=== PATIENT | female | born 1940 | race Caucasian/White ===

== ENCOUNTER 2016-10-31 11:29 | Emergency (ER) | payer MEDICARE ==
[~2016-10-31 11:29] MED LIST: ACET325T51 PO; ALBU0.63 INHALATION; ALBU18HF INH; BISA10SU61 RC; BUDE10.2 INHALATION; CALC500T9 PO; CLOP75TA3 PO; DONE23TA PO; FURO-129 PO; GUAI473S22 PO; HALO2ORA TOPICAL; HALO5AMP2 IM; LEVO75TA4 PO; LISI-567 PO; LORA-302 PO; MAGN400O4 PO; METO25TA99 PO; NA P133E23 RC; NITR0.4T6 SL; NYST1POW23 TOP; OXYC-474 PO; POLY17PO6 PO; QUET50TA PO; RANI150C4 PO; RISP0.254 PO; ROSU20TA27 PO; SENN-133 PO; SERT100T PO; TRAM50TA2 PO
[2016-10-31 11:56] VITALS: BP 152/79; PULSE 79; RESP 16; O2SAT 97
--- NOTE | 2016-10-31 12:04 | ED.REPORT ---
HPI-General Illness Date of Service Oct 31, 2016 ED Provider: Dr. Aceves Pt is a 75 y/o female w/ a hx of significant dementia, Alzheimer's, CAD s/p stents x6, HTN, presenting to the ED via EMS c/o right knee pain onset today. According to her home health nurse the patient awoke this morning with right knee swelling and pain. There is no mention of rash, fever, chills, nausea, vomiting. Nursing notes indicate she has an US scheduled 11/01/16 for abdominal pain. History is limited secondary to severe dementia. Nursing Notes Stated Complaint: LEFT KNEE PAIN Chief Complaint: Extremity Trauma Nursing Notes Reviewed: Yes Allergies: Coded Allergies: Penicillins (Verified Allergy, Unknown, 06/25/15) Sulfa (Sulfonamide Antibiotics) (Verified Allergy, Unknown, 06/25/15) amoxicillin (Verified Allergy, Unknown, 06/25/15) atorvastatin (Verified Allergy, Unknown, 06/25/15) ciprofloxacin (Verified Allergy, Unknown, 06/25/15) ciprofloxacin HCl (Verified Allergy, Unknown, 06/25/15) sulfadiazine (Verified Allergy, Unknown, 06/25/15) valacyclovir (Verified Allergy, Unknown, 02/23/15) sulfamethoxazole (Verified Adverse Reaction, Intermediate, abd pain/ cramping, 05/21/15) trimethoprim (Verified Adverse Reaction, Intermediate, abd pain/cramping, 05/21/15) Scheduled Acetaminophen (Acetaminophen) 325 Mg Tablet 650 MG PO TID Budesonide/Formoterol 80-4.5 mcg Inh (Symbicort 80-4.5 mcg Inh) 120 Puff Inhaler 2 PUFF INHALATION BID Clopidogrel Bisulfate (Plavix) 75 Mg Tablet 75 MG PO DAILY Donepezil (Aricept) 23 Mg Tablet 23 MG PO HS Furosemide (Lasix) 20 Mg Tablet 10 MG PO QAM Levothyroxine (Levothyroxine) 75 Mcg Tablet 37.5 MCG PO QAM Lisinopril (Lisinopril) 20 Mg Tablet 30 MG PO DAILY Lorazepam (Ativan) 0.5 Mg Tablet 0.5 MG PO BID Lorazepam (Ativan) 0.5 Mg Tablet 0.5 MG PO Q4H OR give 1mg Q8H prn Metoprolol Succinate ER (Metoprolol Succinate ER) 25 Mg Tab.er.24h 50 MG PO DAILY Nystatin (Nystatin) 1 Each Powder.ea. 1 EACH TOP BID Polyethylene Glycol 3350 (Miralax) 17 Gm Powd.pack 17 GM PO BID Quetiapine Fumarate (Seroquel) 50 Mg Tablet 50 MG PO TID Ranitidine (Ranitidine) 150 Mg Capsule 150 MG PO BID Risperidone (Risperidone) 0.25 Mg Tablet 0.25 MG PO HS Rosuvastatin Calcium (Rosuvastatin Calcium) 20 Mg Tablet 20 MG PO HS Sennosides (Senna) 8.6 Mg Tablet 17.2 MG PO HS Sertraline HCl (Zoloft) 100 Mg Tablet 150 MG PO QAM Tramadol (Tramadol) 50 Mg Tablet 25-50 MG PO TID Scheduled PRN Acetaminophen (Acetaminophen) 325 Mg Tablet 650 MG PO Q4H PRN PRN For Pain Albuterol Neb Soln (Albuterol Neb Soln) 0.63 Mg/3 Ml Vial.neb 0.63 MG INHALATION Q4H PRN PRN For Shortness of Breath Albuterol Sulfate (Ventolin HFA Inhaler) 200 Puff/18 Gm Inhaler 1 PUFF INH Q4 PRN PRN For Wheezing Bisacodyl (Dulcolax Rectal) 10 Mg Supp.rect 10 MG RC DIRECTED PRN PRN For Constipation Calcium Carbonate (Tums) 500 Mg Tab.chew 1,000 MG PO Q4H PRN PRN For Indigestion Guaifenesin/Codeine Phosphate (Guaifenesin AC Cough Syrup) 473 Ml Liquid 10 ML PO Q4H PRN PRN For Cough Haloperidol Lactate (Haloperidol Lactate) 2 Mg/1 Ml Oral.conc 2 MG TOPICAL Q2H PRN PRN For Anxiety or Agitation apply to inner wrist topically Haloperidol Lactate (Haldol) 5 Mg/1 Ml Ampul 2.5 MG IM ONCE PRN PRN severe agitation Magnesium Hydroxide (Milk of Magnesia) 400 Mg/5 Ml Oral.susp 30 ML PO DIRECTED PRN PRN For Constipation Na Phos,M-B/Na Phos,Di-Ba (Fleet Enema) 133 Ml Enema 133 ML RC DIRECTED PRN PRN For Constipation Nitroglycerin SL (Nitroglycerin SL) 0.4 Mg Tab.subl 0.4 MG SL Q5MIN PRN PRN For Chest Pain Oxycodone (Roxicodone) 5 Mg Tablet 2.5-5 MG PO Q4H PRN PRN For Pain General Time Seen by MD: 12:03 Chief Complaint Other (right knee pain) Hx Obtained From: Patient, [employer], EMS Arrived By: Ambulance Onset Occurred: 1 - 4 hours ago Symptom Duration: Since onset Location: : Knee right Quality: Painful Severity: Current: Moderate Severity: Maximum: Moderate Past Medical History Past Medical History Coronary Artery Disease (s/p stent x6) Asthma. Depression. h/o GI Bleed . Alzheimer's. Atherosclerotic Heart disease of [place] coronary artery without angina pectoris Hypothyroidism LBBB GERD Reports: Hypertension Reports: Depression Past Surgical History Hip replacement Hernia repair Cardiac Stent x6 Reports: Cholecystectomy Reports: Hip replacement Family History Noncontributory Smoking History Never Smoker Social History Lives at [facility] Alcohol Use: Denies alcohol use Drug Use: Denies drug use Other Social History: Local resident Ambulatory Status Wheelchair Review of Systems Full Review of Systems Constitutional: Denies: Chills, Fever Respiratory: Denies: Non-productive cough, Shortness of breath GI: Denies: Nausea, Vomiting Musculoskeletal: Reports: Joint pain, Joint swelling Skin: Denies Itching, Denies Rash Complete sys rev & neg: except as marked. Physical Exam Vital Signs Vital Signs Date Time Temp Pulse Resp B/P Pulse Ox O2 Delivery O2 Flow Rate FiO2 10/31/16 19:29 36.6 86 16 138/73 96 Room Air 10/31/16 19:06 36.6 86 16 138/73 96 Room Air 10/31/16 15:49 100 Room Air 10/31/16 15:08 73 16 127/62 99 Room Air 10/31/16 11:56 36.6 79 16 152/79 97 Room Air Initial VS: Reviewed, Vital signs normal Head / Eyes: Atraumatic, Normocephalic, PERRL ENT: Mucous membranes moist, Conjunctiva normal, No scleral icterus Neck: Supple, Full range of motion Respiratory: Breath sounds normal, Clear to auscultation, No respiratory distress Cardiovascular: Regular rate & rhythm, Heart sounds normal, Intact distal pulses Abdomen / GI: Soft, Non-tender Skin: Warm, Dry, No cyanosis Psychiatric: Mood/affect normal, Behavior normal General/Constitutional: Awake, No acute distress, Cooperative, Not toxic appearing Severely demented Nonsensical speech Lower Extremity / Pelvis / MS: Full range of motion, No erythema, No deformity , Neurologic intact, Vascular intact, No compartment syndrome, No circumferential injury, No edema, Pelvis stable Area of bruising medially over the right knee with tenderness Pain with ROM No warmth 2+ DP and PT pulses Neuro: Severely demented, nonsensical speech, no gross neurological deficits Interpretation & Diagnostics Interpretation & Diagnostics: CT right knee w/out contrast: IMPRESSION: 1. No acute fracture of the right knee. 2. Prominent knee joint effusion may be a sign of internal derangement. The need for further evaluation of the knee utilizing MRI may be determined clinically. 3. Severe degenerative changes of the knee. Dictated by: Matt Rao M.D. on 10/31/2016 at 13:29 Approved by: Matt Rao M.D. on 10/31/2016 at 13:32 Lab Results Interpretation Result Diagram: 10/31/16 1233 10/31/16 1233 Test 10/31/16 12:33 10/31/16 13:15 10/31/16 16:10 White Blood Count 9.6th/mm3 (3.8-10.1) Red Blood Count 4.31mil/mm3 (3.90-5.20) Hemoglobin 12.0g/dL (12.0-15.6) Hematocrit 37.7% (35.0-46.0) Mean Corpuscular Volume 87.5fL (81-100) Mean Corpuscular Hemoglobin 27.8pg (27.0-35.0) Mean Corpuscular Hemoglobin Concent 31.8% (32.0-37.0) Red Cell Distribution Width 14.9% (12.3-15.4) Platelet Count 162bil/L (150-400) Neutrophils (%) (Auto) 80.0% (40-74) Lymphocytes (%) (Auto) 12.1% (14-46) Monocytes (%) (Auto) 7.3% (4-12) Eosinophils (%) (Auto) 0.2% (0-5) Basophils (%) (Auto) 0.2% (0-3) Sodium Level 138mEq/L (134-144) Potassium Level 3.8mEq/L (3.5-5.2) Chloride Level 98mEq/L (97-108) Carbon Dioxide Level 22mmol/L (18-29) Blood Urea Nitrogen 9mg/dL (8-27) Creatinine 0.81mg/dL (0.57-1.00) Estimat Glomerular Filtration Rate 99mL/min (>59) Glucose Level 123mg/dL (60-99) Calcium Level 9.7mg/dL (8.5-10.1) Total Bilirubin 0.7mg/dL (0.0-1.2) Aspartate Amino Transf (AST/SGOT) 30U/L (0-50) Alanine Aminotransferase (ALT/SGPT) 11U/L (0-32) Alkaline Phosphatase 59U/L (25-165) Total Protein 7.5g/dL (6.4-8.4) Albumin 3.9g/dL (3.4-5.0) Urine Color Yellow (YELLOW) Urine Appearance Clear (CLEAR,HAZY) Urine pH 5.5 (5.0-8.0) Urine Specific [place] >1.030 (1.003-1.035) Urine Protein Negativemg/dL (NEG,TRACE) Urine Glucose (UA) Negativemg/dL (NEGATIVE) Urine Ketones 40mg/dL (NEGATIVE) Urine Occult Blood Negative (NEGATIVE) Urine Nitrite Negative (NEGATIVE) Urine Bilirubin Negative (NEGATIVE) Urine Urobilinogen Normalmg/dL (NORMAL) Urine Leukocyte Esterase Negative (NEGATIVE) Urine RBC 0-2/hpf (0-2) Urine WBC 0-5/hpf (0-5) Urine Epithelial Cells Few/hpf (NONE-MOD) Urine Crystals None seen (NONE SEEN) Urine Bacteria Moderate/hpf (NONE-FEW) Urine Hyaline Casts None/lpf (NONE) Urine Granular Casts None seen (NONE SEEN) Urine Waxy Casts None seen (NONE SEEN) Urine Red Blood Cell Casts None seen (NONE SEEN) Urine White Blood Cell Casts None seen (NONE SEEN) Urine Mucus None seen (None Seen) Urine Trichomonas None seen (NONE SEEN) Urine Yeast None (NONE SEEN) Urinalysis Comment None Urine Culture Reflexed Indicated Body Fluid Source Synovial fluid Body Fluid Color Red (Clear) Body Fluid Appearance Turbid Body Fluid WBC 53322/mm3 Body Fluid RBC 347007/mm3 Body Fluid Polynuclear WBCs 93% Body Fluid Lymphocytes 2% Body Fluid Monocytes 5% Body Fluid Eosinophils 0% Body Fluid Basophils 0% X-Ray Interpretation Xray Interpretation: IMPRESSION: Mild to moderate effusion. No visualized acute fracture or dislocation. However, if clinical concern and/or pain persist, short interval imaging followup in 7-10 days is recommended, as occult injury cannot be definitively excluded. Dictated by: Delaney Dotson M.D. on 10/31/2016 at 13:35 Approved by: Delaney Dotson M.D. on 10/31/2016 at 13:38 Study Performed: 2 view X-Ray Ordered: Knee right Interpretation / Wet Read by: Interpret - Radiologist Xray Interpretation: IMPRESSION: Right hip prosthesis in anatomic alignment. No fractures. Dictated by: Daphne Gutierrez M.D. on 10/31/2016 at 14:53 Approved by: Daphne Gutierrez M.D. on 10/31/2016 at 14:55 Study Performed: 2 view X-Ray Ordered: Pelvis Interpretation / Wet Read by: Interpret - Radiologist Xray Interpretation: IMPRESSION: 1. No definitive fractures. If clinical symptoms persist or clinical suspicion for pathology is high, advanced imaging such as CT or MRI is suggested for further evaluation. 2. Moderate to severe degenerative joint disease. 3. Moderate knee joint effusion. Dictated by: Daphne Gutierrez M.D. on 10/31/2016 at 15:01 Approved by: Daphne Gutierrez M.D. on 10/31/2016 at 15:03 Study Performed: 2 views X-Ray Ordered: Femur right Interpretation / Wet Read by: Interpret - ED physician Procedures Arthrocentesis 100 mg Ketamine administered for anxiolysis Time: 15:44 Aspiration Performed by: ED physician Consent / Setup / Site Prep: Informed consent provided, Consent from spouse, Time-out performed, Hand hygiene observed, Stand sterile technique, Sterile drapes applied Indication: Evacuate effusion Skin Preparation Agent: [place] Local Anesthesia: Lidocaine 1%, 3cc Joint Aspirated: Knee right Aspiration Needle: 16g Amount Aspirated: 20 ml Fluid Appearance: Bloody (pure dark blood) Post-Procedure / Complications: Antibiotic oint applied, Dressing placed, No complications, Condition improved, Tolerated procedure well, Patient stable Re-Eval/Medical Decision Med Decision/Clinical Course Severely demented patient with inability to bear weight on the right leg and seemingly focal pain to the knee, there is a palpable effusion and focal ecchymosis medially over the knee, this overall seems more consistent with trauma although the patient cannot give any meaningful history to confirm this. Labs unremarkable, diagnostic imaging fails to show a fracture, arthrocentesis under sterile conditions shows what seems to be a traumatic hemarthrosis likely suggesting some other internal derangement other than a fracture. The cell count and differential seem most consistent with trauma rather than infection, there are no crystals. Patient will be placed in a knee immobilizer and transferred back to halfway. Her primary care provider was contacted and agrees to follow her culture of the knee on the off chance that becomes positive. No antibiotics were initiated as is sufficiently low suspicion. Return and follow-up precautions given. Time of Eval: 16:00 Re-Evaluation/Progress Note: Pt rechecked. Continues to have pain. No complications with arthrocentesis. Time of Eval: 18:23 Patient Status: Condition improved, Moderate relief Re-Evaluation/Progress Note: Pt rechecked. Informed pt of plan for treatment. Pt understands and agrees with plan for treatment. F/U instructions and RTER warnings given. All questions addressed. Consultation : Referral / Consult Name: Lindsay Santana PA-C Consulted With: Primary care physician Call Returned at: 17:54 Admissions Officer: Agrees with eval, Agrees with plan Note: Will follow-up with culture results. Counseled Regarding: Diagnosis, Lab results, Need for follow-up, When/why to return to ED Discharge & Departure Primary Impression: Traumatic hemarthrosis of knee Disposition: Home Discharge Condition All VS Reviewed: Yes Condition: Stable Additional Instructions: There is no fracture, the knee is painful likely due to bleeding into the joint from an injury. Nonweightbearing of the right lower extremity, knee immobilizer at all times, take oxycodone as previously prescribed. Follow-up with Dr. Carrington tomorrow for further management and care. Return to ER as needed if worse. Referrals: Lindsay Santana PA-C (PCP) Scribe Attestation Portions of this note were transcribed by lAfonso Quezada. I, Dr. Aceves, personally performed the history, physical exam and medical decision-making; I reviewed and confirmed the accuracy of the information in the transcribed note. Signed by Jose Angel Landry, 10/31/16 - [id number] copies to: Lindsay Santana PA-C, Timothy S DO Oct 31, 2016 12:03 ALFONSO QUEZADA Oct 31, 2016 12:25
[2016-10-31 12:40] LABS: BASOPHILS % (AUTO) 0.2 % (0-3); EOSINOPHILS % (AUTO) 0.2 % (0-5); MONOCYTES % (AUTO) 7.3 % (4-12); Mean Corpuscular Hemoglobin 27.8 pg (27.0-35.0); Mean Corpuscular Volume 87.5 fL (81-100); Platelet Count 162 bil/L (150-400)
--- NOTE | 2016-10-31 13:40 | DRSVH ---
PROCEDURE: X-RAY RIGHT KNEE, ONE OR TWO VIEWS ([id number]) INDICATIONS: pain, bruising TECHNIQUE: 2 views of the knee were acquired. COMPARISON: None. FINDINGS: Bones: No fractures or dislocations. Partially visualized hardware track within the mid femur is no lucretia. No suspicious bony lesions. Osteoarthritic degnerative changes. Periarticular osteophytes are present. Soft tissues: Mild to moderate joint effusion. No suspicious soft tissue calcifications. IMPRESSION: Mild to moderate effusion. No visualized acute fracture or dislocation. However, if cli nical concern and/or pain persist, short interval imaging followup in 7-10 days is recommended, as oc cult injury cannot be definitively excluded. Dictated by: Delaney Dotson M.D. on 10/31/2016 at 13:35 Approved by: Delaney Dotson M.D. on 10/31/2016 at 13:38
--- NOTE | 2016-10-31 14:34 | DRSVH ---
PROCEDURE: CT KNEE RIGHT W/O CONTRAST ([id number]) INDICATIONS: Persistent right knee pain TECHNIQUE: Noncontrast 1-1.5 mm axial sections acquired from the mid-patella to the proximal tibia, with coronal and sagittal reformats. COMPARISON: [facility], CR, XR KNEE 1 OR 2VW RT, 10/31/2016, 12:27. FINDINGS: Image quality: Diagnostic. Motion artifact is present along the distal margin of the femur. Bones: No displaced acute fracture or dislocation is evident. No suspicious osseous lesions are appr eciated. The bone mineralization is diffusely decreased. There are severe tricompartmental degenera tive changes of the knee, and best appreciated and most pronounced within the patellofemoral compartm ent. Soft tissues: There is a moderate-sized knee joint effusion. No soft tissue masses or loculated flui d collections are identified. No significant atrophy of the imaged muscles are noted. The ligaments , tendons, and menisci are not adequately evaluated on this exam. IMPRESSION: 1. No acute fracture of the right knee. 2. Prominent knee joint effusion may be a sign of internal derangement. The need for further evalua tion of the knee utilizing MRI may be determined clinically. 3. Severe degenerative changes of the knee. Dictated by: Matt Rao M.D. on 10/31/2016 at 13:29 Approved by: Matt Rao M.D. on 10/31/2016 at 13:32
--- NOTE | 2016-10-31 14:56 | DRSVH ---
PROCEDURE: X-RAY PELVIS, ONE OR TWO VIEWS ([id number]) INDICATIONS: pain at distal femur TECHNIQUE: 1 view(s) of the pelvis acquired. COMPARISON: None. FINDINGS: Bones: There is total right hip arthroplasty. The right hip prosthesis is in anatomic alignment. No fractures or dislocations. No suspicious bony lesions. There is osteitis pubis. Soft tissues: Visualized bowel gas pattern is normal. No suspicious soft tissue calcifications. IMPRESSION: Right hip prosthesis in anatomic alignment. No fractures. Dictated by: Daphne Gutierrez M.D. on 10/31/2016 at 14:53 Approved by: Daphne Gutierrez M.D. on 10/31/2016 at 14:55
[2016-10-31] MEDS ORDERED: Ketamine 100 mg/mL 5 mL Inj IM ONE ×2 (15:00→16:20)
--- NOTE | 2016-10-31 15:04 | DRSVH ---
PROCEDURE: X-RAY RIGHT FEMUR, TWO VIEWS ([id number]) INDICATIONS: pain at distal femur TECHNIQUE: 2 views of the femur were acquired. COMPARISON: [facility], CR, XR PELVIS 1 OR 2VW, 10/31/2016, 14:19. [facility] l, CR, XR KNEE 1 OR 2VW RT, 10/31/2016, 12:27. [facility], CT, CT KNEE RT WO CON, 11/01/19 17, 14:12. FINDINGS: Bones: No fractures or dislocations. No suspicious bony lesions. Moderate to severe degenerative j oint disease in right knee. Soft tissues: No suspicious soft tissue calcifications or masses. There is a moderate knee joint ef fusion. There are intraocular bodies within the anterior knee. IMPRESSION: 1. No definitive fractures. If clinical symptoms persist or clinical suspicion for pathology is high , advanced imaging such as CT or MRI is suggested for further evaluation. 2. Moderate to severe degenerative joint disease. 3. Moderate knee joint effusion. Dictated by: Daphne Gutierrez M.D. on 10/31/2016 at 15:01 Approved by: Daphne Gutierrez M.D. on 10/31/2016 at 15:03
[2016-10-31 15:08] VITALS: BP 127/62; PULSE 73; RESP 16; O2SAT 99
[2016-10-31 15:49] VITALS: O2SAT 100
[2016-10-31 17:08] LABS: BFWBC 18250 /mm3; MONOCYTES,BODY FLUID 5 %; OTHER CELLS,BODY FLUID 0
[2016-10-31 17:35] LABS: APPEARANCE,URINE CLEAR (CLEAR,HAZY); COLOR,URINE YELLOW (YELLOW); PH,URINE 5.5 (5.0-8.0)
[2016-10-31 17:36] LABS: OCCULT BLOOD,URINE NEGATIVE (NEGATIVE); UROBILINOGEN,URINE NORMAL (NORMAL)
[2016-10-31 19:06] VITALS: BP 138/73; PULSE 86; RESP 16; O2SAT 96
[2016-10-31 19:29] VITALS: BP 138/73; PULSE 86; RESP 16; O2SAT 96
== END 2016-10-31 19:32 | disposition home or self-care (01) ==
LOC: EDUNIT# 11:29 → EDBD 11:29 → SED 11:29
DX: S83.91XA Sprain of unspecified site of right knee, initial encounter (principal); Y93.89 Activity, other specified; Y92.89 Other specified places as the place of occurrence of the external cause; Y99.8 Other external cause status; I11.0 Hypertensive heart disease with heart failure; I25.10 Atherosclerotic heart disease of native coronary artery without angina pectoris; J45.909 Unspecified asthma, uncomplicated; K21.9 Gastro-esophageal reflux disease without esophagitis; E03.9 Hypothyroidism, unspecified; Z95.5 Presence of coronary angioplasty implant and graft; Z88.0 Allergy status to penicillin; Z88.1 Allergy status to other antibiotic agents; Z88.2 Allergy status to sulfonamides; Z88.8 Allergy status to other drugs, medicaments and biological substances